=== PATIENT | male | born 1955 | race Caucasian/White ===

== ENCOUNTER → 2020-04-04 | Outpatient (CLI) | payer MEDICARE, OTHER ==
[~2020-04-04] MED LIST: CO ENZYME Q-1050 MG PO; EPA FISH OIL1000 MG PO; GLUCOSAMINE & C1 CA1 PO; NEXIUM 40MG40 MG PO; SAW PALMETTO500 MG PO; VITAMIN B12500 MCG PO; VITAMIN C500 MG PO; ZYRTEC 10MG10 MG PO
== END ==
LOC: COL.RAD 03-22 08:00
DX: R93.3 Abnormal findings on diagnostic imaging of other parts of digestive tract (principal)

== ENCOUNTER → 2020-04-14 | Outpatient (CLI) | payer MEDICARE, OTHER | LOC: COL.RAD 07:46 | DX: R93.3 Abnormal findings on diagnostic imaging of other parts of digestive tract (principal); Z98.890 Other specified postprocedural states | CPT/HCPCS: Q9967 ==

== ENCOUNTER 2021-02-15 22:06 | Inpatient (IN) | payer MEDICARE, OTHER ==
[2021-02-15] VITALS (11 sets, daily range): BP systolic 151; BP diastolic 93; PULSE 74; TEMP 98.1; O2SAT 95–100
[~2021-02-15] VITALS: Ht 167.6 cm; Wt 74.2 kg
[~2021-02-15 22:06] MED LIST changes: -CO ENZYME Q-1050 MG PO; +SAW PALMETTO500 M1 PO; -SAW PALMETTO500 MG PO; +THE MEDICINE S200 M2 PO
[2021-02-15] MEDS ORDERED: ASPIRIN 81M81 MG/TA2 PO (23:18)
[2021-02-15] MEDS ORDERED: FLOMAX 0.40.4 MG/CAP PO (23:19)
[2021-02-15 23:43] LABS: MAGNESIUM 1.9 mg/dL (1.6-2.3); PHOSPHOROUS 3.5 mg/dL (2.5-4.5)
[2021-02-15 23:55] LABS: COLLECTION METHOD CLEAN CATCH
[2021-02-15 23:58] LABS: TROPONIN-I < 0.012 ng/mL (0.000-0.035)
[2021-02-16] VITALS (60 sets, daily range): BP systolic 100–145; BP diastolic 48–95; PULSE 57–72; TEMP 97.8–98.3; O2SAT 95–100
[2021-02-16] LABS: PH 7 (5-8); SQUAMOUS EPITHELIAL None Seen /hpf; URINE APPEARANCE Clear; URINE BACTERIA None Seen /hpf; URINE BILIRUBIN Negative (NEGATIVE); URINE BLOOD Negative (NEGATIVE); URINE COLOR Straw; URINE GLUCOSE Negative (NEGATIVE); URINE KETONE Trace (NEGATIVE); URINE LEUKOCYTE ESTERASE Negative (NEGATIVE); URINE NITRATE Negative (NEGATIVE); URINE PROTEIN(semi-quant) Negative (NEGATIVE); URINE RBC None Seen /hpf; URINE UROBILINOGEN Negative (NEGATIVE)
[2021-02-16] MEDS ORDERED: PRAVACHOL80 MG PO (03:09)
[2021-02-16] MEDS ORDERED: EPI-PEN JR0.5 MG/ML IM (03:09)
[2021-02-16] MEDS ORDERED: ACIPHEX20 MG PO (03:09)
[2021-02-16 05:07] LABS: BASO # 0.1 (0.0-0.2); BASO % 0.9 % (0.0-2.0); EOS # 0.2 (0.0-0.7); EOS % 2.8 % (0-4.0); GRAN # 3.2 (1.4-6.5); HEMATOCRIT 37.5 % (42.0-52.0); HEMOGLOBIN 13.2 g/dl (13.5-18.0); LYMPH % 42.5 % (20.0-51.0); MEAN CELL VOLUME 92 fl (80.0-100.0); MEAN CORPUSCULAR HEMOGLOBIN 32 pg (27.0-31.0); MEAN CORPUSCULAR HGB CONC 35 g/dl (33.0-37.0); MEAN PLATELET VOLUME 9.4 fl (7.4-10.4); MONO # 0.5 (0.1-0.6); MONO % 7.5 % (1.7-9.3); PLATELET COUNT 192 K/mm3 (130-400); RED BLOOD COUNT 4.08 M/mm3 (4.20-5.60); REDCELL DISTRIBUTION WIDTH-CV 11.9 % (11.5-14.5)
[2021-02-16 05:24] LABS: ALANINE AMINOTRANSFERASE 19 U/L (4-49); ALBUMIN 3.9 gm/dL (3.5-5.0); ALKALINE PHOSPHATASE 36 U/L (50-136); ANION GAP -2 mmol/L (7-16); AST,SGOT 28 U/L (15-37); BILIRUBIN,TOTAL 0.7 mg/dL (0.0-1.0); BLOOD UREA NITROGEN 14 mg/dL (9-20); CALCIUM 9.5 mg/dL (8.4-10.2); CARBON DIOXIDE 36 mmol/L (22-30); CHLORIDE 103 mmol/L (98-107); CHOLESTEROL 135 mg/dL (120-200); CHOLESTEROL RISK RATIO 2.5; CREATININE, serum 0.97 (0.66-1.25); GLUCOSE 114 mg/dL (74-106); HDL CHOLESTEROL 53 mg/dL; LDL CHOLESTEROL 59 mg/dL; POTASSIUM 4.4 mmol/L (3.4-5.0); SODIUM 137 mmol/L (137-145); TOTAL PROTEIN 6.4 gm/dL (6.4-8.2); TRIGLYCERIDE 114 mg/dL
[2021-02-16 06:08] LABS: TROPONIN-I 6 HR POST INITIAL < 0.012 ng/mL (0.000-0.034)
--- NOTE | 2021-02-16 07:30 | NUR ---
Patient awake and resting in bed. Alert and oriented; able to complete all tasks appropriately for this nurse. Denies any vision changes. Reports only a mild headache on the left side. Rates pain at approximately a 2/10. VS stable no other complaints at this time.
--- NOTE | 2021-02-16 12:03 | NUR ---
First visit from the research agricultural engineer. NO needs right now.
--- NOTE | 2021-02-16 12:33 | NUR ---
Transfered up to medical floor via wheelchair. Alert and oriented and in no distress upon transfer.
--- NOTE | 2021-02-16 12:45 | NUR ---
PATIENT ADMITED INTO ROOM 329 FROM ICU. A&O. PATIENT IS VERY TALKATIVE. VSS ON TELE. DENIES PAIN OR NAUSEA. LUNCH TRAY AT BEDSIDE. IV FLUIDS INFUSING VIA PUMP INTO RIGHT AC IV. HEAD TO TOE ASSESSMENT WNL. ORIENTED TO ROOM. CODY LIGHT IN REACH.
--- NOTE | 2021-02-16 14:48 | NUR ---
Pull Tab Dealer met with patient to discuss discharge planning. Patient lives in [place] with his , Bri (ph#[phone]). Patient goes to [facility] on [address] for primary care and medications. Patient uses a CPAP and no other DME. Patient is independent with ADLS and plans to return home upon discharge. Patient states he has Advance Directives completed which designate his , although they may update this soon. Discharge Plan: Home
--- NOTE | 2021-02-16 14:50 | NUR ---
PATIENT GOING DOWN FOR MRI VIA WC
--- NOTE | 2021-02-16 23:32 | NUR ---
has been ok. He rated his pain 0/10. Vss, will conitnue to monitor.
[2021-02-17 05:07] VITALS: BP 113/60; PULSE 58; TEMP 98.2
[2021-02-17 07:56] VITALS: BP 124/77; PULSE 56; TEMP 97.9
--- NOTE | 2021-02-17 08:00 | NUR ---
PATIENT IS A&O AND VERY TALKTIVE. VSS ON TELE. DENIES PAIN OR NAUSEA. NEURO CHECKS WNL. MRI RESULTS PENDING. HEAD TO TOE ASSESSMENT COMPLETE. AM MEDS GIVEN. BREAKFAST TRAY AT BEDSIDE. IV FLUIDS INFUSING VIA PUMP INTO RIGHT AC IV. PATIENT INDEPENDENT IN ROOM. CALL LIGHT IN REACH. NO OTHER NEEDS AT THIS TIME.
[2021-02-17 12:00] VITALS: BP 151/100; PULSE 87; TEMP 97.9
--- NOTE | 2021-02-17 12:00 | NUR ---
PATIENT DISCHARGING HOME VIA AMBULATORY TO PERSONAL VEHICLE WITH FRIEND. GAVE DISCHARGE INSTRUCTIONS AND DISCUSSED F/U APT. ANSWERED QUESTIONS/CONCERNS. DC'D IV SITE AND COVERED WITH GAUZE & COBAN. PATIENT IS DRESSED, PACKED AND DISCHARGED.
== END 2021-02-17 12:00 | disposition home or self-care (01) | DRG 103 ==
LOC: ICU 22:06 → SURG 02-16 12:30
PROVIDERS: Nurse Practitioner Family; ADMIT Family Medicine
DX: G43.909 Migraine, unspecified, not intractable, without status migrainosus (principal); R47.01 Aphasia; I44.1 Atrioventricular block, second degree; E78.5 Hyperlipidemia, unspecified; H53.9 Unspecified visual disturbance; R47.1 Dysarthria and anarthria; N40.0 Benign prostatic hyperplasia without lower urinary tract symptoms; K21.9 Gastro-esophageal reflux disease without esophagitis; G47.33 Obstructive sleep apnea (adult) (pediatric); I45.10 Unspecified right bundle-branch block; F42.9 Obsessive-compulsive disorder, unspecified; F43.10 Post-traumatic stress disorder, unspecified; Z79.82 Long term (current) use of aspirin; Z87.891 Personal history of nicotine dependence; Z88.6 Allergy status to analgesic agent
CPT/HCPCS: 99233-AI; 99239; A9585; G0379; J1650; J7030

== ENCOUNTER 2021-04-10 06:10 | Day surgery (SDC) | payer MEDICARE, OTHER ==
[~2021-04-10] VITALS: Ht 167.6 cm; Wt 73.7 kg
[2021-04-10] VITALS (11 sets, daily range): BP systolic 96–137; BP diastolic 60–87; PULSE 52–108; TEMP 98–98.6
[~2021-04-10 06:10] MED LIST changes: +ACIPHEX20 MG PO; +ASPIRIN 81M81 MG/TA2 PO; +EPI-PEN JR0.5 MG/ML IM; +FLOMAX 0.40.4 MG/CAP PO; +PRAVACHOL80 MG PO
[2021-04-10] MEDS ORDERED: SYSTANE NIGHTT3.5 GM OP (07:35)
[2021-04-10 08:00] LABS: HEMOGLOBIN 12.7 g/dl (13.5-18.0); MEAN CELL VOLUME 91 fl (80.0-100.0); MEAN CORPUSCULAR HEMOGLOBIN 32 pg (27.0-31.0); MEAN CORPUSCULAR HGB CONC 35 g/dl (33.0-37.0); MEAN PLATELET VOLUME 9.2 fl (7.4-10.4); PLATELET COUNT 190 K/mm3 (130-400); RED BLOOD COUNT 3.96 M/mm3 (4.20-5.60); REDCELL DISTRIBUTION WIDTH-CV 12.2 % (11.5-14.5)
[2021-04-10 08:06] LABS: CALCIUM 9.1 mg/dL (8.4-10.2); CREATININE, serum 0.79 (0.66-1.25); HEMATOCRIT 36.1 % (42.0-52.0); POTASSIUM 3.9 mmol/L (3.4-5.0)
[2021-04-10 08:17] LABS: INR 1.1 (0.8-3.0); PROTHROMBIN TIME 11.7 SECONDS (9.7-12.8)
[2021-04-10 08:20] LABS: PARTIAL THROMBOPLASTIN TIME 27.6 SECONDS (26.0-37.0)
--- NOTE | 2021-04-10 09:21 | NUR ---
SEE MERGE FOR ALL MEDICATION ADMINISTRATION TIMES, INTRA AND POST SEDATION ASSESSMENTS
--- NOTE | 2021-04-10 11:00 | NUR ---
report to Thai Nieto.
--- NOTE | 2021-04-10 12:05 | NUR ---
Telephone report given to STACIA Leal. Pt will be transferred to medical floor after he finishes eating lunch. TR band remains in place, no bleeding at site and forearm remains soft to palpation. Mel will loosen and remove TR band after angiomax infusion has been completed.
--- NOTE | 2021-04-10 12:30 | NUR ---
Pt taken by wheelchair to rm 352. Rt forearm remains soft to palpation. TR band remains in place. No bleeding from rt radial puncture site. Angiomax infusion continues per orders. Pt free of complaint. Personal belongings sent with pt.
--- NOTE | 2021-04-10 22:47 | NUR ---
PT BAND RELIEVED OF 2MLS AT THIS TIME.
[2021-04-11] VITALS: BP 103/57; PULSE 62; TEMP 98.3
--- NOTE | 2021-04-11 00:38 | NUR ---
PT ALERT AND ORIENTED UPON ASSESSMENT. PT ABLE TO CONVERSE FREELY. PT ABLE TO AMBULATE INDEPENDENLTY. PT EXPRESSES WISHES FOR SANDWICH BOX, UNABLE TO OBTAIN AT THIS TIME. WILL CONTINUE TO TRY. PT DENIES PAIN AT THIS TIME. PT RADIAL BAND STILL ON, WILL CONTINUE TO REMOVE AIR NEEDED.
--- NOTE | 2021-04-11 03:04 | NUR ---
2MLS REMOVED AT THIS TIME FROM RADIAL BAND.
--- NOTE | 2021-04-11 03:38 | NUR ---
PT RADIAL BAND REMOVED AT THIS TIME. NO SIGNS OF BLEEDING NOTED.
[2021-04-11 03:55] VITALS: BP 100/60; PULSE 59; TEMP 98.5
--- NOTE | 2021-04-11 05:03 | NUR ---
PT RADIAL SITE CONTINUES TO BE WITHOUT HEMATOMA AFTER BAND REMOVAL. NO BLEEDING NOTED. PT ABLE TO AMBULATE IN [place] AND ROOM THIS SHIFT. PT VS REMAINED STABLE THIS SHIFT. PT DENIED PAIN. PT FREE FROM INJURY THIS SHIFT.
[2021-04-11 08:30] VITALS: BP 109/64; PULSE 61; TEMP 97.8
[2021-04-11] MEDS ORDERED: PLAVIX 75MG TAB75 MG PO (10:00)
[2021-04-11] MEDS ORDERED: ASPIRIN E.C. 8181 MG PO (10:01)
--- NOTE | 2021-04-11 12:27 | NUR ---
Plan is to return home with Bri at . SW met with patient in the room. Patient rpeorts that PCP is Dr. Pathak at [facility] and last seen 6 months ago. Patient reports that he also sees Dr. High and a animal park code enforcement officer. Patient shares that his Mother in-law is an alternate contact Donna Nation at . DPOA is Bri and has aliving will also. Patient rpeorts that he has a CPAP machine that he uses every night but nothing for mobility. Patient reports that he has a heart stint but nothing else. Patient shares that his care is supberb and he is generally healthy and independent. Patient deneis having any other care needs and no pain. Educated on supports available to him through case management. NF>
== END 2021-04-11 10:00 | disposition home or self-care (01) ==
LOC: COL.CAR 06:10 → MEDICAL 13:16 → COL.CAR 04-11 10:00
PROVIDERS: Internal Medicine Interventional Cardiology
DX: I25.10 Atherosclerotic heart disease of native coronary artery without angina pectoris (principal); R94.39 Abnormal result of other cardiovascular function study; G47.30 Sleep apnea, unspecified; Z79.82 Long term (current) use of aspirin; Z79.899 Other long term (current) drug therapy; E78.00 Pure hypercholesterolemia, unspecified; Z87.891 Personal history of nicotine dependence
CPT/HCPCS: OP; C1725; C1769; C1874; C1887; C9600; J0583; J1644; J2250